=== PATIENT | male | born 1995 | race Hispanic/Latino ===

== ENCOUNTER 2020-07-01 21:41 | Emergency (ER) | payer OTHER, SELFPAY ==
[2020-07-01] MEDS ORDERED: MORPHINE 4 MG/ML SYR ONE (23:14)
[2020-07-01] MEDS ORDERED: ONDANSETRON 4 MG/2 ML VIAL ONE (23:14)
[2020-07-01 23:19] LABS: Absolute Lymphocytes (CBC) 1.2 K/uL (0.7-4.9); Basophils % 0.9 % (0-1.3); Hematocrit 43.5 % (39.6-49.0); Lymphocytes % 17.2 % (15.3-44.8); MPV 8.6 fL (7.6-11.3); RBC Red Blood Cell Count 4.93 M/uL (4.33-5.43)
[2020-07-01 23:32] LABS: ALT/SGPT 47 U/L (12-78); AST/SGOT 28 U/L (15-37); Albumin 3.8 g/dL (3.4-5.0); Alkaline Phosphatase 55 U/L (45-117); BUN Blood Urea Nitrogen 20 mg/dL (7-18); Bicarbonate 29 mmol/L (21-32); Bilirubin Direct < 0.1 mg/dL (0-0.2); Bilirubin Total 0.3 mg/dL (0.2-1.0); Glucose Level 97 mg/dL (74-106); Lipase 129 U/L (73-393); Potassium 3.6 mmol/L (3.5-5.1); Protein, Total 7.8 g/dL (6.4-8.2); Sodium Level 143 mmol/L (136-145)
--- NOTE | 2020-07-02 00:37 | EDPHYS ---
Physician Documentation [facility] Name: Raf Stubbs Age: 25 yrs Sex: Male : 1995 Arrival Date: 07/01/2020 Time: 21:45 Bed 7 Private MD: ED Physician Amador Gagnon HPI: 07/01 22:25 This 25 yrs old Male presents to ER via Ambulatory with complaints of Bloody jmm Stools, Abdominal Pain. 22:25 The patient presents with abdominal pain in the upper abdomen. Onset: The jmm symptoms/episode began/occurred gradually, 2 week(s) ago. The symptoms do not radiate. Associated signs and symptoms: Pertinent positives: diarrhea. The symptoms are described as achy. Modifying factors: The symptoms are alleviated by nothing, the symptoms are aggravated by nothing. This is a 25 year old male with no chronic medical conditions that presents to the ED with complaints of generalized abdominal pain beginning approx 2 weeks ago worsening this past Sunday with bright red bowel movements. Denies recent travel, infectious exposure, recent abx use. . Historical: - Allergies: 22:40 No Known Allergies; bb - Home Meds: 22:40 None [Active]; bb - PMHx: 22:40 None; bb - PSHx: 22:40 Tonsillectomy; knee surgery; bb - Immunization history:: Adult Immunizations up to date. - Social history:: Smoking status: Patient denies any tobacco usage or history of. Patient uses alcohol, occasionally. Patient/guardian denies using street drugs. ROS: 22:25 Constitutional: Negative for fever, chills, and weight loss, Cardiovascular: Negative jmm for chest pain, palpitations, and edema, Respiratory: Negative for shortness of breath, cough, wheezing, and pleuritic chest pain. 22:25 Abdomen/GI: Positive for abdominal pain. 22:25 All other systems are negative. Exam: 22:25 Constitutional: This is a well developed, well nourished patient who is awake, alert, jmm and in no acute distress. Head/Face: atraumatic. Eyes: EOMI, no conjunctival erythema appreciated ENT: Moist Mucus Membranes Neck: Trachea midline, Supple Chest/axilla: Normal chest wall appearance and motion. Cardiovascular: Regular rate and rhythm. No edema appreciated Respiratory: Normal respirations, no respiratory distress appreciated 22:25 Back: Normal ROM Skin: General appearance color normal MS/ Extremity: Moves all extremities, no obvious deformities appreciated, no edema noted to the lower extremities Neuro: Awake and alert, normal gait Psych: Behavior is normal, Mood is normal, Patient is cooperative and pleasant 22:25 Abdomen/GI: Inspection: abdomen appears normal, Bowel sounds: normal, Palpation: soft, mild abdominal tenderness, in all quadrants. Vital Signs: 22:37 BP 150 / 95; Pulse 84; Resp 16 S; Temp 98.3(O); Pulse Ox 100% on R/A; Weight 97.52 kg bb (R); Height 5 ft. 10 in. (177.80 cm) (R); Pain 6/10; 23:28 BP 128 / 85; Pulse 87; Resp 17; Pulse Ox 100% on R/A; rv 22:37 Body Mass Index 30.85 (97.52 kg, 177.80 cm) bb MDM: 22:25 Patient medically screened. [facility] 07/02 00:34 Data reviewed: vital signs, nurses notes. Counseling: I had a detailed discussion with caroline the patient and/or guardian regarding: the historical points, exam findings, and any diagnostic results supporting the discharge/admit diagnosis, lab results, radiology results, the need for outpatient follow up, to return to the emergency department if symptoms worsen or persist or if there are any questions or concerns that arise at home. ED course: Patient is alert and non toxic in appearance in the ED. CT negative and labs unremarkable. Patient is advised to follow up with pcp/ and or GI and otherwise given strict return precautions. Patient understood and agrees with the plan of care. . 07/01 22:31 Order name: Basic Metabolic Panel; Complete Time: 23:35 [facility] 07/01 22:31 Order name: CBC with Diff; Complete Time: 23:28 [facility] 07/01 22:31 Order name: Hepatic Function; Complete Time: 23:35 [facility] 07/01 22:31 Order name: Lipase; Complete Time: 23:35 [facility] 07/01 22:31 Order name: CT Abd/Pelvis - IV Contrast Only [facility] 07/02 00:20 Order name: CREATININE WHOLE BLOOD; Complete Time: 00:30 [facility] 07/01 22:31 Order name: IV Saline Lock; Complete Time: 22:59 [facility] 07/01 22:31 Order name: Labs collected and sent; Complete Time: 22:59 [facility] Administered Medications: 07/01 23:09 Drug: Zofran (Ondansetron) 4 mg Route: IVP; Site: right antecubital; rv 23:10 Drug: morphine 4 mg Route: IVP; Site: right antecubital; rv Disposition: 07/02/20 00:36 Discharged to Home. Impression: Gastrointestinal hemorrhage, unspecified, Other abdominal pain. - Condition is Stable. - Discharge Instructions: Abdominal Pain, Adult, Gastrointestinal Bleeding. - Prescriptions for Bentyl 20 mg Oral Tablet - take 2 tablet by ORAL route every 6 hours As needed; 40 tablet. - Medication Reconciliation Form, Thank You Letter, Antibiotic Education, Prescription Opioid Use form. - Follow up: Thuan Frost MD; When: 2 - 3 days; Reason: Recheck today's complaints, Continuance of care, Re-evaluation by your physician. Addendum: 07/03/2020 13:12 Co-signature as Attending Physician, Amador Gagnon MD I agree with the assessment and c interiano plan of care. Signatures: Dispatcher [employer] EDAL Amador Gagnon MD MD cha Mickail, Joel, PA PA Dot Jo, RN RN Koko Ball RN RN jbGilberto Huntley RN RN rv Corrections: (The following items were deleted from the chart) 07/02 00:53 00:36 07/02/2020 00:36 Discharged to Home. Impression: Lower abdominal pain, jm unspecified; Gastrointestinal hemorrhage, unspecified. Condition is Stable. Forms are Medication Reconciliation Form, Thank You Letter, Antibiotic Education, Prescription Opioid Use. Follow up: Thuan Frost; When: 2 - 3 days; Reason: Recheck today's complaints, Continuance of care, Re-evaluation by your physician. [facility] 00:56 00:53 07/02/2020 00:36 Discharged to Home. Impression: Gastrointestinal hemorrhage, jb4 unspecified; Other abdominal pain. Condition is Stable. Discharge Instructions: Abdominal Pain, Adult, Gastrointestinal Bleeding. Prescriptions for Bentyl 20 mg Oral Tablet - take 2 tablet by ORAL route every 6 hours As needed; 40 tablet. and Forms are Medication Reconciliation Form, Thank You Letter, Antibiotic Education, Prescription Opioid Use. Follow up: Thuan Frost; When: 2 - 3 days; Reason: Recheck today's complaints, Continuance of care, Re-evaluation by your physician. caroline
--- NOTE | 2020-07-02 00:37 | ER ---
Nurse's Notes [facility] Name: Raf Stubbs Age: 25 yrs Sex: Male : 1995 Arrival Date: 07/01/2020 Time: 21:45 Bed 7 Private MD: Diagnosis: Gastrointestinal hemorrhage, unspecified;Other abdominal pain Presentation: 07/01 22:37 Chief complaint: Patient states: he has been having some light bright red blood in his bb stool since Sunday and he has abdominal pain with nausea, denies vomiting or diarrhea, also has been feeling fatigued for several months. Coronavirus screen: At this time, the client does not indicate any symptoms associated with coronavirus-19. Ebola Screen: No symptoms or risks identified at this time. Initial Sepsis Screen: Does the patient meet any 2 criteria? No. Patient's initial sepsis screen is negative. Does the patient have a suspected source of infection? No. Patient's initial sepsis screen is negative. Risk Assessment: Do you want to hurt yourself or someone else? Patient reports no desire to harm self or others. Onset of symptoms is unknown. 22:37 Method Of Arrival: Ambulatory bb 22:37 Acuity: CALI 3 bb Historical: - Allergies: 22:40 No Known Allergies; bb - Home Meds: 22:40 None [Active]; bb - PMHx: 22:40 None; bb - PSHx: 22:40 Tonsillectomy; knee surgery; bb - Immunization history:: Adult Immunizations up to date. - Social history:: Smoking status: Patient denies any tobacco usage or history of. Patient uses alcohol, occasionally. Patient/guardian denies using street drugs. Screenin:09 Abuse screen: Denies threats or abuse. Denies injuries from another. Nutritional rv screening: No deficits noted. Tuberculosis screening: No symptoms or risk factors identified. Fall Risk None identified. Assessment: 23:08 General: Appears comfortable, Behavior is calm, cooperative. Pain: Complains of pain in rv abdomen Pain currently is 6 out of 10 on a pain scale. at worst was 8 out of 10 on a pain scale. Neuro: Level of Consciousness is awake, alert, obeys commands, Oriented to person, place, time, situation. Cardiovascular: Patient's skin is warm and dry. Respiratory: Airway is patent Respiratory effort is even, unlabored, Breath sounds are clear bilaterally. GI: Abdomen is round non-distended, Reports nausea. Derm: Skin is intact. Vital Signs: 22:37 BP 150 / 95; Pulse 84; Resp 16 S; Temp 98.3(O); Pulse Ox 100% on R/A; Weight 97.52 kg bb (R); Height 5 ft. 10 in. (177.80 cm) (R); Pain 6/10; 23:28 BP 128 / 85; Pulse 87; Resp 17; Pulse Ox 100% on R/A; rv 22:37 Body Mass Index 30.85 (97.52 kg, 177.80 cm) bb ED Course: 21:45 Patient arrived in ED. cf2 22:23 Branden Garibay PA is PHCP. [facility] 22:23 Amador Gagnon MD is Attending Physician. [facility] 22:37 Dot Brower, KIMBER is Primary Nurse. bb 22:39 Triage completed. bb 22:40 Arm band placed on Patient placed in an exam room, on a stretcher, on pulse oximetry. bb 22:53 Gilberto Garber RN is Primary Nurse. rv 22:55 Inserted saline lock: 20 gauge in right antecubital area, using aseptic technique. rv Blood collected. 22:55 Initial lab(s) drawn, by tx, sent to lab. rv 23:09 Patient has correct armband on for positive identification. Placed in gown. Bed in low rv position. Call light in reach. Side rails up X 1. Pulse ox on. NIBP on. 23:59 CT Abd/Pelvis - IV Contrast Only In Process Unspecified. EDMS 07/02 00:35 Thuan Frost MD is Referral Physician. [facility] Administered Medications: 07/01 23:09 Drug: Zofran (Ondansetron) 4 mg Route: IVP; Site: right antecubital; rv 23:10 Drug: morphine 4 mg Route: IVP; Site: right antecubital; rv Outcome: 07/02 00:36 Discharge ordered by . iris 00:56 Patient left the ED. jb4 Signatures: Dispatcher [employer] EDMS Branden Garibay PA PA Dot Jo, KIMBER RN bb Koko Urena RN RN jb4 Gilberto Garber RN RN rv Wero, Adilene cf2
[2020-07-02 02:00] VITALS: TEMP 98.3; O2SAT 100
[2020-07-02 02:02] VITALS: BP 128/85
--- NOTE | 2020-07-02 12:17 | RAD REPORT ---
EXAM DESCRIPTION: CT - Abdomen Pelvis W Contrast - 07/02/2020 7:04 am CLINICAL HISTORY: The patient is 25 years old and is Male; abdominal pain, bloody stools TECHNIQUE: Axial computed tomography images of the abdomen and pelvis with intravenous contrast. S agittal and coronal reformatted images were created and reviewed. This CT exam was performed using one or more of the following dose reduction techniques: automated exposure control, adjustment of t he mA and/or kV according to patient size, and/or use of iterative reconstruction technique. DLP: 1902 mGy*cm COMPARISON: None. FINDINGS: LUNG BASES: Lung bases are clear. HEART: Visualized heart is normal. ABDOMEN: LIVER: Unremarkable. No mass. GALLBLADDER AND BILE DUCTS: Unremarkable. No calcified stones. No ductal dilation. PANCREAS: Unremarkable. No mass. No ductal dilation. SPLEEN: Unremarkable. No splenomegaly. ADRENALS: Unremarkable. No mass. KIDNEYS AND URETERS: Unremarkable. No solid mass. No hydronephrosis. STOMACH AND BOWEL: Unremarkable. No obstruction. No mucosal thickening. PELVIS: APPENDIX: The appendix is seen and is within normal limits. BLADDER: Unremarkable. No mass. REPRODUCTIVE: Unremarkable as visualized. ABDOMEN and PELVIS: INTRAPERITONEAL SPACE: Unremarkable. No free air. No significant fluid collection. BONES/JOINTS: No acute fracture. No dislocation. SOFT TISSUES: Unremarkable. VASCULATURE: Unremarkable. No abdominal aortic aneurysm. LYMPH NODES: Unremarkable. No enlarged lymph nodes. IMPRESSION: No acute abdominal or pelvic abnormality. Electronically signed by: Jason Sims DO 07/02/2020 12:14 AM CDT Due to temporary technical issues with the PACS/Fluency reporting system, reports are being signed by the in house radiologist without review as a courtesy to ensure prompt reporting. The interpreting r adiologist is fully responsible for the content of the report.
== END 2020-07-02 00:56 | disposition home or self-care (01) ==
LOC: ER 21:41
DX: R10.10 Upper abdominal pain, unspecified (principal)
CPT/HCPCS: 36415; 74177; 80048; 80076; 82565; 83690; 85025; 96374; 96375; 99284; J2405; Q9967